=== PATIENT | female | born 1985 | race Caucasian/White ===

== ENCOUNTER 2018-02-13 12:02 | Inpatient (IN) ==
--- NOTE | 2018-02-13 12:15 | P.HPOB ---
ST[facility]ISH[facility] - Consult Note Patient Name: Rebekah Alejandra Date of : 83 Patient Status: Clinical Attending Provider: Kalie Zamorano Date: 02/13/18 History of Present Illness Requesting Physician: Sheri Manzanares Reason for Consult: Repeat No Primary Care Physician Chief Complaint: 32-year-old 39 weeks gestation presents for History of Present Illness: 32-year-old at 39 weeks presents for a . care with [facility]. Past obstetrical history delivery x2 her first was at 26 weeks she is unsure of the scar but her second delivery was at 39 weeks scheduled without incident. Tubal papers signed a month ago,and discussed today and explained that it is considered permanent yet has a 1 in 300 failure rate, she understands this and wants sterilization. care uneventful to date per patient. Final EDC February 18, 2018 of note patient is requesting on February 10, 2018 for sentimental reasons. Weeks Gestation:: 36 Para: 2 : 5 Review of Systems All other systems reviewed negative except as stated in HPI PMFSH - Medical History Medical History: Medical History (Last Updated 01/27/18 @ 17:30 by Kalie Zamorano MD) delivery delivered - Surgical History Surgical History: Surgical History (Last Updated 01/27/18 @ 17:30 by Kalie Zamorano MD) Previous section [2] Previous ectopic surgically treated - Tobacco History Smoking Status: Current every day smoker Tobacco Type: Cigarettes Medications and Allergies Allergies Allergy/AdvReac Type Severity Reaction Status Date / Time No Known Allergies Allergy Uncoded 03/01/12 11:35 Exam Narrative: GENERAL: Well-nourished, well-developed patient. SKIN: Warm and dry. HEAD: Normocephalic and atraumatic. EYES: No scleral icterus. No injection or drainage. ENT: No nasal drainage noted. Mucous membranes pink. Airway patent. NECK: Supple, trachea midline. No JVD. CARDIOVASCULAR: Regular rate and rhythm without murmurs, gallops, or rubs. RESPIRATORY: Breath sounds equal bilaterally. No accessory muscle use. BREASTS: Bilateral exam showed no masses , no retractions, no nipple discharge. ABDOMEN/GI: Abdomen soft, non-tender, bowel sounds present, no rebound, no guarding Gravid to 36 weeks size Fundal Height: Consistent with gestational age GENITOURINARY: Deferred FHT's: Reports movement EXTREMITIES: No cyanosis or edema. BACK: Nontender without obvious deformity. No CVA tenderness. NEUROLOGICAL: Awake and alert. Motor and sensory grossly within normal limits. Normal speech. Assessment and Plan - Diagnosis (1) Previous delivery affecting Code(s): O34.219 - Maternal care for unspecified type scar from previous delivery Status: Acute 2-39 week IUP for RCS BTL Status: Acute - Plan Scheduled for repeat delivery, BTL on February 13 at 2 PM. Preop Intra- Op and postop events discussed. Alternatives benefits complications discussed. Patient expressed verbal understanding
[2018-02-13] MEDS ORDERED: ceFAZolin Inj 2,000 MG in Sodium Chlor 0.9% Inj 100 ML IV.SIG PRN (12:16)
[2018-02-13] MEDS ORDERED: Citric Acid/Sodium Citrate Liq 30 ML UDC PO SCH (12:30)
[2018-02-13 13:19] LABS: Baso % (Auto) 0.4 % (0.0-2.0); Eos # (Auto) 0.2 th/mm3 (0.0-0.4); Eos % (Auto) 1.4 % (0.0-4.0); Hematocrit 35.3 % (35.0-46.0); Lymph # (Auto) 2.2 th/mm3 (1.0-4.8); Lymph % (Auto) 18.1 % (9.0-44.0); Mean Corpuscular Hemoglobin 30.6 pg (27.0-34.0); Mean Corpuscular Volume 89.8 fL (80.0-100.0); Mean Platelet Volume 8.9 fL (7.0-11.0); Mono # (Auto) 0.7 th/mm3 (0.0-0.9); Mono % (Auto) 5.7 % (0.0-8.0); Neut # (Auto) 8.9 th/mm3 (1.8-7.7); Neut % (Auto) 74.4 % (16.0-70.0); Platelet Count 274 th/mm3 (150-450); Red Blood Count 3.93 mil/mm3 (4.00-5.30); Red Cell Distribution Width 13.1 % (11.6-17.2); White Blood Count 11.9 th/mm3 (4.0-11.0)
[2018-02-13 13:21] LABS: Bilirubin,Urine Negative (Negative); Clarity,Urine Hazy (Clear); Color,Urine Yellow (Yellw/Straw); Glucose,Urine (UA) Negative (Negative); Leukocyte Esterase,Urine Negative (Negative); Mucus,Urine Few /lpf (Occasional); Nitrite,Urine Negative (Negative); Specific Gravity,Urine 1.018 (1.002-1.035); Squamous Epithelial Cell,Urine 5 /hpf (0-5)
[2018-02-13] MEDS ORDERED: Morphine Sulfate PF Inj 5 MG/10 ML Ampul ONE (13:21)
[2018-02-13 13:25] LABS: Amphetamine Screen,Urine Neg (Neg); Barbiturate Screen,Urine Neg (Neg); Cannabinoid Screen,Urine Neg (Neg); Cocaine Screen,Urine Neg (Neg)
[2018-02-13 13:27] LABS: Opiate Screen,Urine Neg (Neg)
[2018-02-13] MEDS ORDERED: Oxytocin 30 Units/500ml Premix 30 UNITS/500 ML BAG IV.SIG ONE (15:52)
[2018-02-13] MEDS ORDERED: Simethicone 80 MG Chew Tablet PO PRN (15:52)
--- NOTE | 2018-02-13 15:57 | P.OBDELI ---
Procedure Note Performed by: Nica Reynoso MD, R2 Procedure: Repeat Low Transverse Section Indication for Delivery: Desired elective repeat Informed Consent Obtained: For anesthesia, For procedure Confirmed Correct: Patient, Procedure, Site, Time-out taken Anesthesia: Spinal Medication Prior to Procedure: As documented in eMAR Monitoring During Procedure: Blood pressure monitoring, clinical research monitor, doppler, monitor, Pulse oximetry Urinary Catheter: Inserted using sterile technique Sterile Preparation: With 2% chlorexidine (Hibiclens) Position: Supine with wedge to right side - Operative Features Skin Incision: Pfannenstiel Uterine Incision: Low transverse w/knife / blunt ext Membranes Ruptured: Artificially Presentation: Face presentation Status of Infant: Viable, Cord blood, Umbilical cord, Nursery present Placenta Delivered: Intact Medications: Antibiotics, Oxytocin Estimated blood loss (mL): 500 Procedure Tolerated: Well Maternal Condition: Stable Baby Condition: Stable - Infant : Female ( 8/9, 6lb)
--- NOTE | 2018-02-13 16:01 | P.OP ---
- Preoperative Diagnosis (1) Previous delivery affecting (2) 39 weeks gestation of - Postoperative Diagnosis (1) Previous delivery affecting (2) 39 weeks gestation of Date of procedure: 02/13/18 Procedure: Repeat low transverse section, left tubal ligation Anesthesia: regional Surgeon: Jose M Lane MD Post Acute Care Nurse Practitioner: Nica Reynoso Estimated blood loss (mL): 500 IV fluids (mL): 1,000 Urine output (mL): 100 Operation and Findings: 39-week intrauterine multiparous with previous section x2 now for repeat section and tubal ligation on the left side patient had a right tubal surgery from an ectopic in the past. Patient was taken off room placed supine position operating table after adequate spinal anesthesia administered prepped draped for abdominal surgery. A previous Pfannenstiel incision was excised out cast-off. The incision carried the fascia sharply fascia dissected laterally and off the rectus muscle with Bovie cautery. The peritoneal cavity entered in the midline just beneath the rectus muscle which was using Bovie cautery. Once inside the abdominal and peritoneal cavity could palpate a large band of adhesions in the left side these adhesions were brought near the opening of the incision and could tell that was only adhesive tissue there and so Bovie cautery used cautery through that and that freed up the uterine fundus. Sharp dissection brought the bladder down approximately 1-2 cm but could not go further due to just small bleeders occurring noticed and I want to get in the bladder and I did not want to continue to have a bleeding issue at the level of the bladder so that dissection was ceased. A transverse hysterotomy was made extended bluntly bilaterally and clear fluid noted. A female was delivered at 2: 47 PM weight 2730g 8 /9. There is no complications delivery, delayed cord clamping done, cord blood obtained. The placenta manually extracted and cast off. The uterus exteriorized in usual fashion and the uterus cleaned of all remnants of membranes. The hysterotomy closed running layer of 0 chromic followed by imbricating suture same, hemostasis was achieved with several small [id number] stick ties on the lower uterine segment where those adhesions had been was oozing and Brianna was then placed on that lower uterine segment and a sheet of Interceed placed there as well. At this time the tubal ligation was performed. The right tube was identified and noted to be missing this distal half from the previous ectopic so the no ligation needed on that side and so a left tubal ligation was performed in the usual [place] fashion with the tube elevated with a [place] avascular minute window and the mesial salpinx identified and a hemostat passed through 2 free ties then brought through that window and the tube was tied fore and aft and the intervening segment removed and sent to pathology. The blood suctioned cul-de-sac gutters the uterus replaced the peritoneal cavity fascia closed in running layer 0 Vicryl subcutaneous tissues reapproximated using 0 plain catgut suture this closed the space well. And then 3-0 Monocryl subcuticular stitch to close the skin. Pressure dressing applied and Steri-Strips. Estimate blood loss 500 cc were no complications sponge and needle correct x2. Patient taken recovery in stable condition.
[2018-02-13] MEDS ORDERED: Naloxone Inj 0.4 MG/ML Vial IV.PUSH PRN (17:03)
[2018-02-13 18:11] VITALS: O2SAT 97
[2018-02-13] MEDS ORDERED: Oxytocin 30 Units/500ml Premix 30 UNITS/500 ML BAG IV.SIG PRN (20:52)
[2018-02-14] MEDS: ceFAZolin Inj 2,000 MG in Sodium Chlor 0.9% Inj 80 ML IV.SIG SCH ×2 (00:58→06:29)
[2018-02-14 05:54] LABS: Baso % (Auto) 0.3 % (0.0-2.0); Eos # (Auto) 0.2 th/mm3 (0.0-0.4); Eos % (Auto) 1.5 % (0.0-4.0); Hematocrit 29.2 % (35.0-46.0); Hemoglobin 10.4 gm/dL (11.6-15.3); Lymph # (Auto) 1.6 th/mm3 (1.0-4.8); Lymph % (Auto) 14.8 % (9.0-44.0); Mean Corpuscular HGB Conc 35.6 % (32.0-36.0); Mean Corpuscular Hemoglobin 31.6 pg (27.0-34.0); Mean Corpuscular Volume 88.8 fL (80.0-100.0); Mean Platelet Volume 8.3 fL (7.0-11.0); Mono # (Auto) 0.5 th/mm3 (0.0-0.9); Mono % (Auto) 4.6 % (0.0-8.0); Neut # (Auto) 8.5 th/mm3 (1.8-7.7); Neut % (Auto) 78.8 % (16.0-70.0); Platelet Count 223 th/mm3 (150-450); Red Blood Count 3.29 mil/mm3 (4.00-5.30); Red Cell Distribution Width 13.3 % (11.6-17.2); White Blood Count 10.8 th/mm3 (4.0-11.0)
--- NOTE | 2018-02-14 08:27 | P.PNOB ---
Subjective Post op day: 1 Interval history: Patient's pain is well-controlled. Patient reports eating and drinking without any nausea or vomiting. Patient reports minimal bleeding. Patient has not yet passed gas , no bowel movements. Patient is walking without lower extremity pain or shortness of breath. Objective Vital Signs/I&O: Vital Signs 02/13/18 12:46 02/13/18 12:54 02/13/18 15:50 Temperature 99.0 F 97.5 F L Pulse Rate 70 48 L Respiratory Rate 18 14 Blood Pressure 103/59 L 119/74 Pulse Oximetry 02/13/18 16:05 02/13/18 16:17 02/13/18 16:34 Temperature Pulse Rate 59 L 51 L 52 L Respiratory Rate 18 18 16 Blood Pressure 100/57 L 96/60 L 96/59 L Pulse Oximetry 02/13/18 16:35 02/13/18 16:50 02/13/18 17:20 Temperature 97.5 F L 97.4 F L 97.4 F L Pulse Rate 66 66 Respiratory Rate 16 16 Blood Pressure 107/72 107/47 L Pulse Oximetry 97 02/13/18 20:00 02/13/18 22:00 02/13/18 23:51 Temperature 98.3 F 97.9 F Pulse Rate 61 18 L 63 Respiratory Rate 18 18 Blood Pressure 97/61 L 89/52 L Pulse Oximetry 02/14/18 01:28 02/14/18 04:00 02/14/18 07:20 Temperature 98.6 F 98.0 F Pulse Rate 64 65 Respiratory Rate 18 18 21 Blood Pressure 89/54 L 102/60 Pulse Oximetry Intake & Output 02/13/18 02/14/18 02/14/18 18:59 06:59 18:59 Intake Total 100 / 100 Balance 100 / 100 Weight 64 kg Intake: IV 100 / 100 Ancef Inj 2,000 MG In NS Inj 80 100 / 100 ML @ 200 mls/hr IV.SIG Q8H [facility] Rx#:[id number] Other: Weight On Admission 64 kg Result Diagrams: 02/14/18 05:18 Objective Remarks: GENERAL: Well-nourished, well-developed patient. CARDIOVASCULAR: Regular rate and rhythm without murmurs, gallops, or rubs. RESPIRATORY: Breath sounds equal bilaterally. No accessory muscle use. ABDOMEN/GI: Abdomen soft, non-tender, bowel sounds present. Incision: Clean, dry and intact.pressure dressing in place Fundus: Firm, non-tender at umbilicus. GENITOURINARY: Light to moderate bleeding. EXTREMITIES: No cyanosis or edema, non-tender, without signs of DVT. Medications and IVs: Active Medications Citric Acid/Sodium Citrate (Sodium Citrate/Citric Acid Liq) 30 ml PO SUPERINTENDENT [employer]ORAGE [facility] Stop: 02/17/18 12:29 Last Admin: 02/13/18 13:47 Dose: 30 ml Diphenhydramine HCl (Benadryl) 50 mg PO Q6H PRN PRN Reason: MILD TO MODERATE ITCHING Stop: 02/14/18 17:02 Diphenhydramine HCl (Benadryl Inj) 25 mg IV.PUSH Q6H PRN PRN Reason: MILD TO MODERATE ITCHING Stop: 02/14/18 17:02 Diphtheria/Pertussis/Tetanus Vacc (Boostrix Vaccine Inj) 0.5 ml IM .ONCE ONE Stop: 02/14/18 16:01 Cefazolin Sodium 2,000 mg/ (Sodium Chloride) 120 mls @ 240 mls/hr IV.SIG SUPERINTENDENT [employer] STORAGE PRN PRN Reason: ON-CALL Lactated Ringer's (Lr 1000 Ml Inj) 1,000 mls @ 150 mls/hr IV.CONT .Q6H40M [facility] Last Admin: 02/14/18 03:21 Dose: Not Given Lactated Ringer's (Lr 1000 Ml Inj) 1,000 mls @ 100 mls/hr IV.CONT .Q10H [facility] Stop: 02/14/18 16:51 Last Admin: 02/13/18 23:23 Dose: 100 mls/hr Oxytocin (Pitocin 30 Units/Ns 500 Ml Premix) 30 units in 500 mls @ 100 mls/hr IV.SIG UNSCH PRN PRN Reason: Heavy bleeding Ibuprofen (Motrin) 800 mg PO Q8H PRN PRN Reason: PAIN 1-10 AND/OR FEVER >101F Ketorolac Tromethamine (Toradol Inj) 30 mg IM Q6H PRN PRN Reason: SEE LABEL COMMENTS Measles/Mumps/Rubella Vaccine Live (M-M-R Ii Vaccine Inj) 0.5 ml SQ .ONCE ONE Stop: 02/14/18 16:01 Miscellaneous Information [place] 1 each OTHER UNSCH PRN PRN Reason: SEE LABEL COMMENTS Stop: 02/14/18 17:02 Miscellaneous Information ([facility] 1 each OTHER UNSCH PRN PRN Reason: SEE LABEL COMMENTS Stop: 02/14/18 17:02 Naloxone HCl (Narcan Inj) 0.4 mg IV.PUSH UNSCH PRN PRN Reason: SEE LABEL COMMENTS Stop: 02/14/18 17:02 Ondansetron HCl (Zofran Inj) 4 mg IV.PUSH Q6H PRN PRN Reason: NAUSEA OR VOMITING Oxycodone/Acetaminophen (Percocet 5/325 Mg) 1 tab PO Q4H PRN PRN Reason: PAIN SCALE 3 TO 5 Oxycodone/Acetaminophen (Percocet 5/325 Mg) 2 tab PO Q4H PRN PRN Reason: PAIN SCALE 6 TO 10 Last Admin: 02/14/18 04:30 Dose: 2 tab Senna/Docusate Sodium (Viridiana-Colace) 2 tab PO Q12H PRN PRN Reason: CONSTIPATION Simethicone (Mylicon Chew) 80 mg PO QID PRN PRN Reason: FLATULENCE Sodium Chloride (Ns Flush) 2 ml IV.FLUSH BID ELLEN Last Admin: 02/14/18 03:21 Dose: Not Given Sodium Chloride (Ns Flush) 2 ml IV.FLUSH PRN PRN PRN Reason: FLUSH AFTER USING IV ACCESS Assessment and Plan - Diagnosis (1) delivery delivered Code(s): O82 - Encounter for delivery without indication Status: Acute Plan: Patient was counseled to do 6 weeks of pelvic rest. Patient was counseled to follow up in 6 weeks. Patient requested follow-up. --AF VSS --Continue routine care --Motrin and Percocet when necessary for pain --Encourage OOB --Pelvic rest for 6 weeks will need follow-up appointment at that time. --Contraception: Status post BTL --Anticipate discharge tomorrow or
[2018-02-14] MEDS ORDERED: Diphtheria/Tetanus/Pertussis Vaccine Inj 0.5 ML Syringe IM ONE (16:00)
[2018-02-14] MEDS ORDERED: Measles/Mumps/Rubella Vaccine Inj 0.5 ML Vial SQ ONE (16:00)
[2018-02-14] MEDS: Senna/Docusate Sodium 8.6/50 MG Tablet PO PRN (22:16)
--- NOTE | 2018-02-15 09:51 | P.PNOB ---
Subjective Post op day: 2 Interval history: Postoperative day #2 AFVSS overnight. Incision not draining. Decreased lochia. Denies dysuria. No breast tenderness. Appetite good. No nausea or vomiting. Positive flatus. Ambulating well. Denies calf pain or shortness of breath. Otherwise, she is doing well this morning and has no other complaints. Objective Vital Signs/I&O: Vital Signs 02/14/18 12:00 02/14/18 20:00 02/15/18 09:00 Temperature 98.0 F 98.1 F 98.8 F Pulse Rate 73 70 71 Respiratory Rate 20 16 18 Blood Pressure 92/56 L 102/65 106/69 Result Diagrams: 02/14/18 05:18 Objective Remarks: GENERAL: Well-nourished, well-developed patient. CARDIOVASCULAR: Regular rate and rhythm without murmurs, gallops, or rubs. RESPIRATORY: Breath sounds equal bilaterally. No accessory muscle use. ABDOMEN/GI: Abdomen soft, non-tender, bowel sounds present. Incision: Clean, dry and intact. Fundus: Firm, non-tender at umbilicus. GENITOURINARY: Light to moderate bleeding. EXTREMITIES: No cyanosis or edema, non-tender, without signs of DVT. Medications and IVs: Active Medications Citric Acid/Sodium Citrate (Sodium Citrate/Citric Acid Liq) 30 ml PO STRESS TEST TECHNICIAN [facility] Stop: 02/17/18 12:29 Last Admin: 02/13/18 13:47 Dose: 30 ml Cefazolin Sodium 2,000 mg/ (Sodium Chloride) 120 mls @ 240 mls/hr IV.SIG STRESS TEST TECHNICIAN PRN PRN Reason: ON-CALL Lactated Ringer's (Lr 1000 Ml Inj) 1,000 mls @ 150 mls/hr IV.CONT .Q6H40M [facility] Last Admin: 02/14/18 11:05 Dose: Not Given Oxytocin (Pitocin 30 Units/Ns 500 Ml Premix) 30 units in 500 mls @ 100 mls/hr IV.SIG UNSCH PRN PRN Reason: Heavy bleeding Ibuprofen (Motrin) 800 mg PO Q8H PRN PRN Reason: PAIN 1-2 AND/OR FEVER >101F Last Admin: 02/15/18 02:43 Dose: 800 mg Ketorolac Tromethamine (Toradol Inj) 30 mg IM Q6H PRN PRN Reason: SEE LABEL COMMENTS Ondansetron HCl (Zofran Inj) 4 mg IV.PUSH Q6H PRN PRN Reason: NAUSEA OR VOMITING Oxycodone/Acetaminophen (Percocet 5/325 Mg) 1 tab PO Q4H PRN PRN Reason: PAIN SCALE 3 TO 5 Last Admin: 02/15/18 02:44 Dose: 1 tab Oxycodone/Acetaminophen (Percocet 5/325 Mg) 2 tab PO Q4H PRN PRN Reason: PAIN SCALE 6 TO 10 Last Admin: 02/15/18 08:55 Dose: 2 tab Senna/Docusate Sodium (Viridiana-Colace) 2 tab PO Q12H PRN PRN Reason: CONSTIPATION Last Admin: 02/14/18 22:16 Dose: 2 tab Simethicone (Mylicon Chew) 80 mg PO QID PRN PRN Reason: FLATULENCE Sodium Chloride (Ns Flush) 2 ml IV.FLUSH BID ELLEN Last Admin: 02/14/18 22:17 Dose: Not Given Sodium Chloride (Ns Flush) 2 ml IV.FLUSH PRN PRN PRN Reason: FLUSH AFTER USING IV ACCESS Assessment and Plan - Diagnosis (1) delivery delivered Code(s): O82 - Encounter for delivery without indication Status: Acute Plan: 32y/o female who is POD#2 s/p CXN. -Continue routine care. -Percocet and Motrin PRN pain. -Encouraged OOB. Advised pelvic rest for 6 wks. Will need a f/u appt. in 1 wk for incision check. -D/c likely today wdw Dr. Tamez
[2018-02-15 10:10] VITALS: BP 104/65; PULSE 67; RESP 16; TEMP 97
[2018-02-15] MEDS: Senna/Docusate Sodium 8.6/50 MG Tablet PO PRN (10:18)
== END 2018-02-15 13:50 | disposition home or self-care (01) ==
LOC: H2E 12:02 → H1EA 16:49
PROVIDERS: ADMIT Obstetrics & Gynecology Maternal & Fetal Medicine; ATTEND Obstetrics & Gynecology Maternal & Fetal Medicine